=== PATIENT | female | born 1995 | race Two or more races ===

== ENCOUNTER 2018-08-11 17:54 | Day surgery (SDC) | payer MEDICAID ==
[2018-08-11 18:34] VITALS: BMI 42.5
[2018-08-11 19:22] LABS: Bilirubin Small (Negative); Blood, Urine Negative (Negative); Glucose, Urine (Dipstick) Negative (Negative); Leukocyte Negative (Negative); Nitrite Negative (Negative); Protein, Urine (Dipstick) Negative (Neg-Trace); Urobilinogen 0.2 mg/dL (0.2-1.0)
[2018-08-11 19:23] LABS: Clarity Clear (Clear); Specific Gravity, Urine 1.025 (1.002-1.036)
[2018-08-11 19:24] LABS: Hemoglobin 10.1 g/dL (12.0-16.0); Mean Corpuscular HGB CONC 32.6 g/dL (32.0-36.0); Mean Corpuscular Hemoglobin 26.8 pg (27.0-31.0); Mean Corpuscular Volume 82.2 fL (78.0-98.0); Mean Platelet Volume 7.7 fL (7.4-10.4); Platelet Count 243 thou/uL (130-400); RBC Distribution Width 13.5 % (11.5-14.5); Red Blood Cell (RBC) Count 3.78 mill/uL (4.20-5.40); White Blood Cell (WBC) Count 13.8 thou/uL (4.8-10.8)
[2018-08-11 19:32] LABS: Amphetamine Not Detected (NotDetected); Barbiturates Screen Not Detected (NotDetected); Benzodiazepine Screen Not Detected (NotDetected); Cocaine Metabolite Screen Not Detected (NotDetected); Medtox Control Line Valid? VALID (VALID); Medtox Reader # READER 1; Methadone Not Detected (NotDetected); Methamphetamine Not Detected (NotDetected); Opiate Screen Not Detected (NotDetected); Oxycodone Screen Not Detected (NotDetected); Phencyclidine (PCP) Not Detected (NotDetected); THC/Cannabinoid Screen Not Detected (NotDetected); Tricyclic Screen Not Detected (NotDetected)
[2018-08-11 19:38] LABS: Bacteria/HPF Rare-Few HPF (None Seen); RBC/HPF None Seen HPF (0-3); WBC/HPF 0-3 HPF (0-3)
[2018-08-11 19:39] LABS: Hyaline Casts/LPF NONE SEEN LPF (0-3 Hyaline)
[2018-08-11 20:22] LABS: Syphilis Antibody Nonreactive (Nonreactive); Syphilis Antibody Index 0.05 S/CO (<1.00 Non-Reactive)
--- NOTE | 2018-08-11 20:37 | ULT ---
OBSTETRICAL ULTRASOUND: 08/11/2018 HISTORY: A 23-year-old female. COMPARISON: None. TECHNIQUE: Multiplanar lara-scale sonographic imaging of the gravid uterus provided. FINDINGS: A single intrauterine gestation is present, demonstrating a vertex presentation and a heart rate of 1 50 beats per minute. The placenta is located posteriorly, with no evidence for previa or abruption. intracranial contents are not fully assessed on this exam. The spine appears grossly un remarkable. A three-vessel cord is documented. urinary bladder, kidneys, and stomach appear g rossly unremarkable. Four-chamber heart view is suboptimal. Evaluation of the umbilical cord insert ion and nose/lips is limited as well. Amniotic fluid index is 13.3 cm. BIOMETRY: BPD: 7.3 cm (29 weeks 1 day) HC: 27.5 cm (30 weeks 0 days) AC: 26.1 cm (30 weeks 1 day) FL: 5.5 cm (29 weeks 0 days) AVERAGE AGE BASED ON ULTRASOUND: 29 weeks 4 days. ESTIMATED DATE OF DELIVERY: 10/23/2018 ESTIMATED WEIGHT: 1442 g, plus or minus 213 g. IMPRESSION: Single intrauterine gestation, as detailed above. POS: [facility]
--- NOTE | 2018-08-11 20:42 | PRG ---
DATE OF SERVICE: 08/11/2018 TIME OF SERVICE: 1645 hours. PRESENTING COMPLAINT: Lower abdominal pain and not having gotten antepartum care secondary to moving 30 weeks. HISTORY OF PRESENT ILLNESS: Ms. Corcoran is a 23-year-old 5, para 2, AB 2, x2 at 30 w eeks by her stated SANTOSH. She presents complaining of mild lower abdominal pain and has concerns about her baby due to irregular care. She was living in [place] and has now moved to the area. She is on [place] [employer] and has been getting her antepartum care by driving back to [place] on a q .2-4 week basis. She does not have her medical records with her. She reports that her baby has been measuring small for gestational age and has persistent breech presentation. She desires TOLAC if ce phalic presentation at onset of labor. 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 The patient's story related sounds like she had an induction of labor with a decision made for failure to progress at less than 12 hours of induction and 4 cm with f irst and a repeat without offer of TOLAC with her second . She has had 2 miscarriages. She denies STDs. PAST MEDICAL HISTORY: Significant for Hidradenitis suppurativa. PAST SURGICAL HISTORY: C-sections and I&D of boils and axilla. ALLERGIES: Denies. MEDICATIONS: vitamins. SOCIAL HISTORY: Denies tobacco, alcohol, or drug use. REVIEW OF SYSTEMS: Noncontributory. PHYSICAL EXAMINATION: GENERAL: female in no acute distress. VITAL SIGNS: Blood pressure 128/84, pulse 85, respirations 18, temperature 97.6. HEENT: Within normal limits. LUNGS: Clear to auscultation bilaterally. HEART: Regular rhythm. ABDOMEN: Soft, nontender. Fundal height 30 cm. FHTs 130s to 140s. PELVIC: Vulva: No lesions noted. The patient does have stigmata of hidradenitis in her groin bilat erally. Vagina is without discharge. Group B strep culture was collected. Cervix is closed, long, and high, breech presentation noted. EXTREMITIES: Without clubbing, cyanosis or edema. tracing, nonstress test was carried out and revealed no evidence of contractions. FHTs a re 130s to 140s, positive accelerations, no decelerations. IMPRESSION: Insufficient care with mild lower abdominal pain. No evidence of active labor at approximately 30 weeks gestation with possible intrauterine growth restriction and previous C-sect ion x2. PLAN: It seems unlikely that this patient will obtain a hard copy of her medical records from [facility]. We will go ahead and do no care panel, as well as complete OB ultrasound. Patient will be referred to the Clinic for antepartum care post-discharge.
[2018-08-11 21:27] LABS: HBSAB Concentration 11.83 mIU/mL; Hep B Surf AB Indeterminate (NonReactive)
== END 2018-08-11 20:30 | disposition home or self-care (01) ==
LOC: L&D/OP 17:54
PROVIDERS: ATTEND Obstetrics & Gynecology
DX: O99.89 Other specified diseases and conditions complicating pregnancy, childbirth and the puerperium (principal); R10.30 Lower abdominal pain, unspecified; O09.33 Supervision of pregnancy with insufficient antenatal care, third trimester; Z3A.30 30 weeks gestation of pregnancy; Z79.899 Other long term (current) drug therapy; Z91.040 Latex allergy status
CPT/HCPCS: 36415; 76805; 80306; 81001; 85027; 86706; 86762; 86780; 86850; 86900; 86901; 87081; 87086; 99285

== ENCOUNTER 2019-03-17 08:14 | Emergency (ER) | payer MEDICAID ==
[2019-03-17] MEDS ORDERED: Dicyclomine 20 MG TAB ONE (08:30)
[2019-03-17] MEDS ORDERED: Ondansetron ODT 4 MG TAB ONE (08:30)
[2019-03-17 08:45] LABS: Bilirubin Negative (Negative); Blood, Urine Negative (Negative); Clarity CLEAR (Clear); Glucose, Urine (Dipstick) Negative (Negative); Leukocyte Negative (Negative); Nitrite Negative (Negative); Protein, Urine (Dipstick) Negative (Neg-Trace); Specific Gravity, Urine 1.021 (1.002-1.036); Urobilinogen 0.2 mg/dL (0.2-1.0)
[2019-03-17 08:53] LABS: Pregnancy Test - Urine (BHCG) Negative (Negative); Pregu Control Background? CLEAR/WHITE (CLR/WHITE); Pregu Control Bar Appear? YES (CONTROL BAR); Specific Gravity 1.021 (1.002-1.036)
== END 2019-03-17 09:06 | disposition home or self-care (01) ==
LOC: ERS 08:14
DX: R11.2 Nausea with vomiting, unspecified (principal); R19.7 Diarrhea, unspecified
CPT/HCPCS: 81003; 81025; 99284; Q0162

== ENCOUNTER 2019-03-22 23:14 | Emergency (ER) | payer MEDICAID, SELFPAY ==
[2019-03-23] MEDS ORDERED: Lidocaine 1% PF 5 ML VIAL ONE (01:30)
[2019-03-23] MEDS ORDERED: Bacitracin 1 PK ONE (02:21)
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
== END 2019-03-23 03:45 | disposition home or self-care (01) ==
LOC: ERS 23:14
DX: S02.40FA Zygomatic fracture, left side, initial encounter for closed fracture (principal); S01.112A Laceration without foreign body of left eyelid and periocular area, initial encounter; F32.9 Major depressive disorder, single episode, unspecified; Y04.0XXA Assault by unarmed brawl or fight, initial encounter
CPT/HCPCS: 12011; 70450; 70486; J2001

== ENCOUNTER 2019-04-20 16:45 | Emergency (ER) | payer SELFPAY | END 2019-04-20 17:47 | disposition home or self-care (01) | LOC: ERS 16:45 | DX: J30.9 Allergic rhinitis, unspecified (principal); F32.9 Major depressive disorder, single episode, unspecified | CPT/HCPCS: 99281 ==

== ENCOUNTER 2019-04-22 02:08 | Emergency (ER) | payer SELFPAY | END 2019-04-22 03:21 | disposition left against medical advice (07) | LOC: ERS 02:08 | DX: Z53.21 Procedure and treatment not carried out due to patient leaving prior to being seen by health care provider (principal) | CPT/HCPCS: 87081; 87430 ==